=== PATIENT | female | born 1965 | race Caucasian/White ===

== ENCOUNTER 2017-02-27 10:57 | Emergency (ER) | payer MEDICAID | END 2017-02-27 12:50 | disposition home or self-care (01) | LOC: D.ER 10:57 | DX: M54.2 Cervicalgia (principal); K21.9 Gastro-esophageal reflux disease without esophagitis ==

== ENCOUNTER 2017-11-13 14:18 | Inpatient (IN) | payer MEDICAID ==
[~2017-11-13] VITALS: Ht 149.9 cm; Wt 59.1 kg
[2017-11-13 15:19] LABS: BASOPHILS 0.3 % (0-2); EOSINOPHILS 3.2 % (0-7); HEMATOCRIT 40.1 % (36.0-48.0); HEMOGLOBIN 13.9 g/dL (12-16); IMMATURE GRANULOCYTES 0.2 % (0-5); MCHC 34.7 g/dL (31.0-37.0); MCV 89.3 fL (80.0-100.0); MEAN PLATELET VOLUME 10.5 fL (7.4-10.4); MONOCYTES 6.5 % (2-11); NEUTROPHILS 57.8 % (40-80); RBC 4.49 10x6/uL (4.00-5.40)
[2017-11-13 15:20] LABS: PLATELET COUNT 209 10x3/uL (130-400)
[2017-11-13 15:35] LABS: ALBUMIN 3.8 g/dL (3.4-5.0); ALKALINE PHOSPHATASE 114 U/L (46-116); ALT (SGPT) 62 U/L (10-68); BILIRUBIN - TOTAL 0.32 mg/dL (0.2-1.3); CALC OSMOLALITY 285 mosm/kg (275-300); CALCIUM 9.1 mg/dL (8.5-10.1); CARBON DIOXIDE 30.5 mmol/L (21.0-32.0); CHLORIDE - SERUM 107 mmol/L (98-107); CREATININE - SERUM 0.7 mg/dL (0.6-1.3); GLUCOSE 84 mg/dL (74-106); POTASSIUM - SERUM 3.8 mmol/L (3.5-5.1); PROTEIN - SERUM 8.2 g/dL (6.4-8.2); SODIUM 144 mmol/L (136-145); UREA NITROGEN 12 mg/dL (7-18); eGFR NON AFRICAN AMERICAN > 90 mL/min (90-120)
[2017-11-13 18:22] LABS: APTT 29.8 SECONDS (22.8-39.4); INR 1.17 (0.85-1.17); PROTIME 14.5 SECONDS (11.6-15.0)
[2017-11-13 18:28] LABS: CKMB 0.3 U/L (0.0-3.6); CREATINE KINASE 105 UL (21-215)
[2017-11-13 18:31] LABS: TROPONIN-I < 0.017 ng/mL (0.000-0.060)
[2017-11-13 21:21] VITALS: BP 170/91
[2017-11-14 00:11] VITALS: BP 170/91; BMI 26.3
[2017-11-14] MEDS ORDERED: ALEVE220 MG PO (00:23)
[2017-11-14] MEDS ORDERED: ZANTAC150 MG PO (00:24)
[2017-11-14] MEDS ORDERED: ZESTRIL20 MG PO (00:25)
[2017-11-14 04:33] VITALS: BP 155/99
[2017-11-14 08:48] VITALS: BP 166/99
[2017-11-14 11:51] VITALS: BP 160/110
[2017-11-14 13:09] VITALS: Ht 149.9 cm; Wt 59.1 kg
[2017-11-14 15:35] LABS: CHOL - HDL RATIO 3.1 ratio (2.3-4.1); LDL-HDL RATIO 1.8 ratio (1.5-3.5)
[2017-11-14 17:11] VITALS: BP 124/80
[2017-11-14] MEDS ORDERED: CALAN SR240 MG PO (18:58)
== END 2017-11-14 20:29 | disposition left against medical advice (07) | DRG 65 ==
LOC: D.ER 14:18 → OBSVTIME 18:02 → D.MS 18:02
PROVIDERS: Family Medicine; Internal Medicine Nephrology
DX: I63.9 Cerebral infarction, unspecified (principal); G81.94 Hemiplegia, unspecified affecting left nondominant side; F17.203 Nicotine dependence unspecified, with withdrawal; R29.810 Facial weakness; R47.81 Slurred speech; I10 Essential (primary) hypertension; K21.9 Gastro-esophageal reflux disease without esophagitis; B19.20 Unspecified viral hepatitis C without hepatic coma; R40.2252 Coma scale, best verbal response, oriented, at arrival to emergency department; R40.2142 Coma scale, eyes open, spontaneous, at arrival to emergency department; R40.2362 Coma scale, best motor response, obeys commands, at arrival to emergency department; R29.700 NIHSS score 0